=== PATIENT | male | born 1965 | race African-American/Black ===

== ENCOUNTER 2017-11-14 00:17 | Emergency (ER) | payer BC, OTHER ==
[2017-11-14 00:53] VITALS: BP 112/79; PULSE 87; TEMP 98.9
--- NOTE | 2017-11-14 02:00 | PDOC ---
History of Present Illness - General Chief Complaint: Cold Symptoms Stated Complaint: FEVER Time Seen by Provider: 11/14/17 01:03 History Source: Patient Exam Limitations: No Limitations - History of Present Illness Initial Comments: 11/14/17 02:02 52-year-old male without any ankle history presents to the emergency department complaining of fever, chills, general malaise 4 days without headache, dizziness, lightheadedness, facial pains, rhinorrhea, nasal congestion, earaches , sore throat, chest pain, shortness of breath, abdominal pains, flank pains, urinary symptoms. Patient states he's taken Tylenol, last dose 3 hours ago with minimal relief Timing/Duration: reports: other (x4d) Associated Symptoms: reports: fever/chills. denies: nasal congestion, sore throat, wheezing Past History - Past Medical History Allergies/Adverse Reactions: Allergies Allergy/AdvReac Type Severity Reaction Status Date / Time No Known Allergies Allergy Verified 11/14/17 00:51 - Suicide/Smoking/Psychosocial Hx Smoking History: Current every day smoker Have you smoked in the past 12 months: Yes Number of Cigarettes Smoked Daily: 10 Information on smoking cessation initiated: No Hx Alcohol Use: No Drug/Substance Use Hx: No Review of Systems - Review of Systems Able to Perform ROS?: Yes Comments:: 11/14/17 02:02 CONSTITUTIONAL: Absent: fever, chills, diaphoresis, generalized weakness, malaise, loss of appetite HEENT: Absent: rhinorrhea, nasal congestion, throat pain, throat swelling, difficulty swallowing, mouth swelling, ear pain, eye pain, visual Changes CARDIOVASCULAR: Absent: chest pain, loss of consciousness, palpitations, irregular heart rate, peripheral edema RESPIRATORY: Absent: cough, shortness of breath, dyspnea with exertion, orthopnea, wheezing, stridor, hemoptysis GASTROINTESTINAL: Absent: abdominal pain, abdominal distension, nausea, vomiting, diarrhea, constipation, melena, hematochezia GENITOURINARY: Absent: dysuria, frequency, urgency, hesitancy, hematuria, flank pain, genital pain MUSCULOSKELETAL: Absent: myalgia, arthralgia, joint swelling SKIN: Absent: rash, itching, pallor HEMATOLOGIC/IMMUNOLOGIC: Absent: easy bleeding, easy bruising, lymphadenopathy, frequent infections ENDOCRINE: Absent: unexplained weight gain, unexplained weight loss, heat intolerance, cold intolerance NEUROLOGIC: Absent: headache, focal weakness or paresthesias, dizziness, unsteady gait, seizure, mental status changes, bladder or bowel incontinence PSYCHIATRIC: Absent: anxiety, depression, suicidal or homicidal ideation, hallucinations. Is the patient limited Panamanian proficient: No *Physical Exam - Vital Signs Last Vital Signs Temp Pulse Resp BP Pulse Ox 98.9 F 87 20 112/79 99 11/14/17 00:51 11/14/17 00:51 11/14/17 00:51 11/14/17 00:51 11/14/17 00:51 - Physical Exam Comments: 11/14/17 02:02 GENERAL: Well developed, well nourished. Awake and alert. No acute distress. HEENT: Normocephalic, atraumatic. PERRLA, EOMI. No conjunctival pallor. Sclera are non- icteric. Moist mucous membranes. Oropharynx is clear. NECK: Supple. Full ROM. No JVD. Carotid pulses 2+ and symmetric, without bruits. No thyromegaly. No lymphadenopathy. CARDIOVASCULAR: Regular rate and rhythm. No murmurs, rubs, or gallops. Distal pulses are 2+ and symmetric. PULMONARY: No evidence of respiratory distress. Lungs clear to auscultation bilaterally. No wheezing, rales or rhonchi. ABDOMINAL: Soft. Non-tender. Non-distended. No rebound or guarding. No organomegaly. Normoactive bowel sounds. MUSCULOSKELETAL Normal range of motion at all joints. No bony deformities or tenderness. No CVA tenderness. EXTREMITIES: No cyanosis. No clubbing. No edema. No calf tenderness. SKIN: Warm and dry. Normal capillary refill. No rashes. No jaundice. NEUROLOGICAL: Alert, awake, appropriate. Cranial nerves 2-12 intact. No deficits to light touch and temperature in face, upper extremities and lower extremities. No motor deficits in the in face, upper extremities and lower extremities. Normoreflexic in the upper and lower extremities. Normal speech. Toes are down- going bilaterally. Gait is normal without ataxia. PSYCHIATRIC: Cooperative. Good eye contact. Appropriate mood and affect. *DC/Admit/Observation/Transfer Diagnosis at time of Disposition: Viral syndrome Fever Qualifiers: Fever type: unspecified Qualified Code(s): R50.9 - Fever, unspecified - Discharge Dispostion Disposition: HOME Condition at time of disposition: Stable Admit: No - Referrals Referrals: Yuval Mccall MD [Primary Care Provider] - - Patient Instructions Printed Discharge Instructions: DI for Fever (Symptom) -- Adult, DI for Viral Syndrome Additional Instructions: Please treat you symptoms. Take Tylenol alternating with Motrin every 6 hours as needed for fever/pain Follow-up with your physician within 48 hours Rest Return back to the emergency department for severe/persistent or worsening symptoms - Post Discharge Activity
[2017-11-14] MEDS ORDERED: IBUPROFEN 600 MG TABLET (FP) PO ONE ×2 (02:01→02:05)
== END 2017-11-14 03:20 | disposition home or self-care (01) ==
LOC: JER 00:17
DX: B34.9 Viral infection, unspecified (principal)
CPT/HCPCS: 87804; 99281-25

== ENCOUNTER 2019-04-07 10:46 | Emergency (ER) | payer OTHER ==
[2019-04-07 10:57] VITALS: BMI 20.5
[2019-04-07] MEDS ORDERED: LACTATED RINGERS SOLUTION 1000 ML INFUS.BAG IV ONE (11:39)
--- NOTE | 2019-04-07 11:45 | PDOC ---
History of Present Illness - General Chief Complaint: Nasal Bleeding Stated Complaint: BP PROBLEM/NOSE BLEED Time Seen by Provider: 04/07/19 11:02 - History of Present Illness Initial Comments: The pt is a 53M w/ a history of diet controlled HTN who presents for evaluation of epistaxis and concern for elevated BP. He reports taking multiple BPs at home yesterday ranging from 140s-170s/90s-117. He reports associated lightheadedness and epistaxis. He states the epistaxis was intermittent occurred this AM as well and resolved approximately 1 hour [employer]. He reports lightheadedness that is worse with standing but denies falls or LOC. Denies recent illness, fevers/chills, chest pain, trouble breathing, abdominal pain, N/V/C/D, dysuria, hematuria, or blood in his stool. PMH: diet controlled HTN PSH: R knee arthoscopy Meds: Denies Allergies: Denies SH: 1/2 ppd; Social EtOH; Denies illicit drug use PMD: N/A 04/07/19 11:40 Past History - Past Medical History Allergies/Adverse Reactions: Allergies Allergy/AdvReac Type Severity Reaction Status Date / Time No Known Allergies Allergy Verified 04/07/19 10:53 Home Medications: Ambulatory Orders Amlodipine Besylate 5 mg PO DAILY #14 tablet 04/07/19 COPD: No - Immunization History Immunization Up to Date: Yes - Suicide/Smoking/Psychosocial Hx Smoking History: Current every day smoker Have you smoked in the past 12 months: No Number of Cigarettes Smoked Daily: 10 Information on smoking cessation initiated: No Hx Alcohol Use: No Drug/Substance Use Hx: No Review of Systems - Review of Systems Able to Perform ROS?: Yes Comments:: GENERAL/CONSTITUTIONAL: No fever or chills HEAD, EYES, EARS, NOSE AND THROAT: No change in vision. No ear pain or discharge. No sore throat CARDIOVASCULAR: No chest pain or shortness of breath RESPIRATORY: Denies cough, hemoptysis GASTROINTESTINAL: No nausea, vomiting, diarrhea or constipation GENITOURINARY: No dysuria, frequency, or change in urination MUSCULOSKELETAL: No joint or muscle swelling or pain. No neck or back pain SKIN: No rash NEUROLOGIC: No headache, vertigo, loss of consciousness, or change in strength/ sensation ENDOCRINE: No increased thirst. No abnormal weight change HEMATOLOGIC/LYMPHATIC: No anemia, easy bleeding, or history of blood clots ALLERGIC/IMMUNOLOGIC: No hives or skin allergy 04/07/19 11:43 Is the patient limited Mozambican proficient: No *Physical Exam - Vital Signs Last Vital Signs Temp Pulse Resp BP Pulse Ox 98.2 F 16 L 16 149/97 97 04/07/19 10:54 04/07/19 10:54 04/07/19 10:54 04/07/19 10:54 04/07/19 10:54 - Physical Exam Comments: GENERAL: Awake, alert, and oriented to person/place/time, in no acute distress HEAD: No signs of trauma, normocephalic, atraumatic EYES: PERRLA, EOMI, sclera anicteric, conjunctiva clear ENT: Hearing grossly normal, nares patent, oropharynx clear without exudates. No uvular deviation. Moist mucosa LUNGS: No distress, speaks in full sentences, clear to auscultation bilaterally HEART: Regular rate and rhythm, normal S1 and S2, no murmurs appreciated, peripheral pulses normal and equal bilaterally ABDOMEN: Soft, nontender, normoactive bowel sounds. No guarding, no rebound EXTREMITIES: Normal inspection, Normal range of motion, no edema. No clubbing or cyanosis NEUROLOGICAL: Cranial nerves II through XII grossly intact. Normal speech, normal gait, no focal sensorimotor deficits SKIN: Warm, Dry 04/07/19 11:43 ED Treatment Course - LABORATORY CBC & Chemistry Diagram: 04/07/19 11:45 04/07/19 11:45 - RADIOLOGY Radiology Studies Ordered: Category Date Time Status CHEST X-RAY PORTABLE* [RAD] Stat Radiology 04/07/19 11:38 Ordered Medical Decision Making - Medical Decision Making The pt is a 53M w/ a history of diet controlled HTN who presents for evaluation of HTN and epistaxis Epistaxis has since resolved Pt BP her is 149/97 Will send CMP, CBC, Trop I CXR ECG 1L LR Will reassess 04/07/19 11:43 Pt feels improved Lytes unremarkable No Leukocytosis No anemia LFTs unremarkable Plan for D/C w/ PCP f/u Rx for amlodipine sent Discharge instructions and return precautions given Pt in agreement and verbalized understanding Dispo: home 04/07/19 13:14 *DC/Admit/Observation/Transfer Diagnosis at time of Disposition: Epistaxis Hypertension Qualifiers: Hypertension type: unspecified Qualified Code(s): I10 - Essential (primary) hypertension - Discharge Dispostion Disposition: HOME Condition at time of disposition: Stable Decision to Admit order: No - Prescriptions Prescriptions: Amlodipine Besylate 5 mg PO DAILY #14 tablet - Referrals [place] [facility] [place] [facility] [place] Group] Alex Montez MD [Staff Physician] - Wayne Cheng MD [Staff Physician] - Toni Graham MD [Staff Physician] - - Patient Instructions Printed Discharge Instructions: DI for Nosebleed Additional Instructions: You were seen in the Emergency Department for evaluation of lightheadedness, blood pressure, and nose bleed. Your labs were unremarkable as was your ECG. Review the handouts provided at discharge. Follow up with a primary care provider (referrals provided). Return to the Emergency Department if you develop fevers/chills, chest pain, trouble breathing, lightheadedness, nausea/ vomiting, worsening symptoms, or any new/concerning symptoms. - Post Discharge Activity
[2019-04-07 12:01] LABS: BASO % 0.9 % (0-2.0); EOS % 6.5 % (0-4.5); HEMOGLOBIN 17.8 GM/dL (11.7-16.9); LYMPH % 41.4 % (8-40); MCHC 34.3 g/dl (32.0-35.9); MEAN CELL VOLUME 96.2 fl (80-96); MEAN PLT VOLUME 9.2 fl (7.5-11.1); MONO % 10.3 % (3.8-10.2); NEUT % 40.9 % (42.8-82.8); PLATELET COUNT 137 K/MM3 (134-434); RBC 5.41 M/mm3 (4.00-5.60); RDW 13.7 % (11.9-15.9); WHITE BLOOD COUNT 2.7 K/mm3 (4.0-10.0)
[2019-04-07 12:15] LABS: INR 1.03 (0.83-1.09); PROTHROMBIN TIME (PATIENT) 12.1 SEC (9.7-13.0)
[2019-04-07 12:18] LABS: ACTIVATED PTT 33.6 SECONDS (25.2-36.5)
[2019-04-07 12:34] LABS: ALK PHOS 63 U/L (45-117); ANION GAP 5 MMOL/L (8-16); BILIRUBIN,TOTAL 0.6 mg/dL (0.2-1); BLOOD UREA NITROGEN 12.1 mg/dL (7-18); CALCIUM 9.7 mg/dL (8.5-10.1); CHLORIDE 108 mmol/L (98-107); CO2 27 mmol/L (21-32); CREATININE 0.9 mg/dL (0.55-1.3); GLUCOSE,RANDOM 101 mg/dL (74-106); POTASSIUM 4.5 mmol/L (3.5-5.1); SGOT/AST 35 U/L (15-37); SGPT/ALT 52 U/L (13-61); SODIUM 140 mmol/L (136-145); TOT PROT 8.2 g/dl (6.4-8.2)
--- NOTE | 2019-04-07 12:37 | PDOC ---
Documentation entered by Latha Marcano SCRIBE, acting as scribe for Maria Cowart MD. Maria Cowart MD: This documentation has been prepared by the shakiraibe, Latha Marcano SCRIBE, under my direction and personally reviewed by me in its entirety. I confirm that the documentation accurately reflects all work, treatment, procedures, and medical decision making performed by me. Attending Attestation - Resident Resident Name: Rickie Spence - ED Attending Attestation I have performed the following: I have examined & evaluated the patient, The case was reviewed & discussed with the resident, I agree w/resident's findings & plan, Exceptions are as noted - HPI HPI: 04/07/19 12:21 Mr Dickens is a 53 yo M with a prior history of HTN who presents to the ER with a complaint of nose bleeding Pt states that he previously had a history of HTN was followed at [facility] but his doctor no longer practices there so he stopped going He also discontinued use of his Amlodipine Pt states that on Wednesday evening he noted a nose bleed which resolved He again noted on , a nose bleed He was also dizzy Pt noted another nose bleed this morning He took his BP with an automated BP cuff which he has at home and it was 170s/ 110s Pt decided to come in the to the ER He denies chest pain, palpitations Pt denies headache Pt denies nausea or vomiting - Physicial Exam PE: 04/07/19 12:21 GENERAL: The patient is in no acute distress. ENT: Ears normal, nares patent, oropharynx clear without exudates. Moist mucous membranes. No longer bleeding from the nares NECK: Normal range of motion, supple LUNGS: Breath sounds equal, clear to auscultation bilaterally. No wheezes, and no crackles. HEART:Regular rate and rhythm, normal S1 and S2 without murmur, rub or gallop. ABDOMEN: Soft, nontender, normoactive bowel sounds. EXTREMITIES: Normal range of motion, no edema. NEUROLOGICAL: Cranial nerves II through XII grossly intact. Normal speech. No focal neurological deficits. SKIN: Warm, Dry, normal turgor, no rashes or lesions noted. - Medical Decision Making 04/07/19 12:19 EKG - NSR rate of 59 bpm, axis nml, intervals nml (pr:158ms, QRS:88ms, QTc:394ms ), no st elevation or depression, t waves upright 04/07/19 12:21 Laboratory Tests 04/07/19 04/07/19 11:45 11:45 WBC 2.7 L Hgb 17.8 H Hct 52.0 H Plt Count 137 INR 1.03 04/07/19 12:36 Laboratory Tests 04/07/19 11:45 Sodium 140 Potassium 4.5 Chloride 108 H BUN 12.1 Creatinine 0.9 Troponin I < 0.[address] head Pt will be discharged to home Will send on Amlodipine Follow up with [facility] *DC/Admit/Observation/Transfer Diagnosis at time of Disposition: Epistaxis - Discharge Dispostion Condition at time of disposition: Stable - Prescriptions Prescriptions: Amlodipine Besylate 5 mg PO DAILY #14 tablet - Referrals Referrals: [facility] [place] [facility] [place] [Provider Group] Alex Montez MD [Staff Physician] - Wayne Cheng MD [Staff Physician] - Toni Graham MD [Staff Physician] - - Patient Instructions - Post Discharge Activity
[2019-04-07 13:45] VITALS: BP 163/115; PULSE 63; TEMP 98
--- NOTE | 2019-04-10 00:36 | EKG ---
Test Reason : Blood Pressure : / mmHG Vent. Rate : 059 BPM Atrial Rate : 059 BPM P-R Int : 158 ms QRS Dur : 088 ms QT Int : 398 ms P-R-T Axes : 048 -04 034 degrees QTc Int : 394 ms SINUS BRADYCARDIA POSSIBLE LEFT ATRIAL ENLARGEMENT BORDERLINE ECG NO PREVIOUS ECGS AVAILABLE Confirmed by MD Adarsh, Laci ([id number]) on 04/10/2019 12:36:36 AM Referred By: Confirmed By:Laci Altamirano MD
== END 2019-04-07 13:42 | disposition home or self-care (01) ==
LOC: JER 10:46
PROC: 3E0337Z Introduction of Electrolytic and Water Balance Substance into Peripheral Vein, Percutaneous Approach (ICD-10-PCS; principal; 2019-04-07)
DX: I10 Essential (primary) hypertension (principal); R04.0 Epistaxis
CPT/HCPCS: 36415; 71045-TC-FY; 80053; 84484; 85025; 85610; 85730; 93005; 93010; 99283-25